=== PATIENT | female | born 1950 | race Caucasian/White ===

== ENCOUNTER 2018-07-23 05:01 | Emergency (ER) | payer OTHER ==
[2018-07-23] MEDS ORDERED: ASPIRIN 81 MG CHEWABLE TABLET ONE (06:45)
[2018-07-23] MEDS ORDERED: NA CHLORIDE 0.9% 500 ML ONE (06:46)
[2018-07-23] MEDS ORDERED: KETOROLAC 30 MG/ML INJ ONE (06:47)
[2018-07-23 07:10] LABS: ALT/SGPT 123 U/L (12-78); AST/SGOT 51 U/L (15-37); Albumin 4.1 g/dL (3.4-5.0); Alkaline Phosphatase 104 U/L (45-117); BUN Blood Urea Nitrogen 19 mg/dL (7-18); Bicarbonate 29 mmol/L (21-32); Bilirubin Direct < 0.1 mg/dL (0-0.2); Bilirubin Total 0.4 mg/dL (0.2-1.0); Glucose Level 134 mg/dL (74-106); Magnesium 2.2 mg/dL (1.8-2.4); NT PRO-BNP 29 pg/mL (<125); Potassium 4.1 mmol/L (3.5-5.1); Protein, Total 7.2 g/dL (6.4-8.2); Protime INR 0.91; Sodium Level 141 mmol/L (136-145); Troponin (Emerg Dept Use Only) < 0.02 ng/mL (0.0-0.045)
[2018-07-23 07:11] LABS: Absolute Monocytes 0.7 K/uL (0.1-1.3); Absolute Neutrophil 5.1 K/uL (1.8-8.0); Basophils % 1.4 % (0-1.3); Hematocrit 43.1 % (36.0-45.0); Lymphocytes % 23.5 % (15.3-44.8); MPV 8.2 fL (7.6-11.3); Monocytes % 8.8 % (3.3-12.3); RBC Red Blood Cell Count 4.59 M/uL (3.86-4.86)
--- NOTE | 2018-07-23 07:34 | EDPHYS ---
Physician Documentation [facility] Name: Sarah Dick Age: 68 yrs Sex: Female : 1950 Arrival Date: 07/23/2018 Time: 05:03 Bed 15 Private MD: Crispin Galeas ED Physician Rashad Lam HPI: 07/23 06:23 This 68 yrs old Female presents to ER via Ambulatory with complaints of R Arm cp Pain. 06:23 The patient or guardian complains of pain, that is acute. cp 06:23 The complaints affect the right upper arm. Context: resulted from unknown cause. Onset: cp The symptoms/episode began/occurred 2 day(s) ago. Treatment prior to arrival includes: no previous treatment. Modifying factors: The symptoms are alleviated by nothing. the symptoms are aggravated by nothing. Associated signs and symptoms: Pertinent negatives: fever, numbness, swelling, weakness, chest pain. Severity of symptoms: in the emergency department the symptoms have improved, mildly. Patient denies injury and reports pain started while lying in bed 2 days ago and is described as "aching". Patient reports pain waxes and wanes. Historical: - Allergies: 05:22 PENICILLINS; jd3 05:22 shellfish proteins; jd3 - Home Meds: 05:22 levothyroxine 137 mcg oral tab 1 tab once daily [Active]; Viibryd 40 mg oral tab 1 tab jd3 once daily [Active]; pantoprazole 40 mg oral TbEC 1 tab 2 times per day [Active]; irbesartan 150 mg oral tab 1 tab once daily [Active]; - PMHx: 05:22 Hypertension; jd3 - PSHx: 05:22 Hysterectomy; Appendectomy; jd3 - Immunization history:: Adult Immunizations up to date. - Social history:: Smoking status: Patient/guardian denies using tobacco. - Ebola Screening: : Patient negative for fever greater than or equal to 101.5 degrees Fahrenheit, and additional compatible Ebola Virus Disease symptoms. ROS: 06:40 Eyes: Negative for injury, pain, redness, and discharge. cp 06:40 Constitutional: Negative for body aches, chills, fever, poor PO intake. 06:40 ENT: Negative for drainage from ear(s), ear pain, sore throat, difficulty swallowing, difficulty handling secretions. 06:40 Cardiovascular: Negative for chest pain, edema, palpitations. 06:40 Respiratory: Negative for cough, dyspnea on exertion, shortness of breath, wheezing. 06:40 Abdomen/GI: Negative for abdominal pain, nausea, vomiting, and diarrhea, constipation, black/tarry stool, rectal bleeding. 06:40 Back: Negative for pain at rest, pain with movement, radiated pain. 06:40 MS/extremity: Positive for pain, of the right upper arm, Negative for injury or acute deformity, decreased range of motion, paresthesias. 06:40 Skin: Negative for cellulitis, rash. 06:40 Neuro: Negative for dizziness, headache, syncope, near syncope, weakness. cp 06:40 All other systems are negative. Exam: 06:35 ECG was reviewed by the Attending Physician. cp 06:45 Constitutional: The patient appears in no acute distress, alert, awake, cp non-diaphoretic, non-toxic, well developed, well nourished. 06:45 Head/Face: Normocephalic, atraumatic. Eyes: Pupils equal round and reactive to light, cp extra-ocular motions intact. Lids and lashes normal. Conjunctiva and sclera are non-icteric and not injected. Cornea within normal limits. Periorbital areas with no swelling, redness, or edema. ENT: Nares patent. No nasal discharge, no septal abnormalities noted. Tympanic membranes are normal and external auditory canals are clear. Oropharynx with no redness, swelling, or masses, exudates, or evidence of obstruction, uvula midline. Mucous membranes moist. Neck: Trachea midline, no thyromegaly or masses palpated, and no cervical lymphadenopathy. Supple, full range of motion without nuchal rigidity, or vertebral point tenderness. No Meningismus. Chest/axilla: Normal chest wall appearance and motion. Nontender with no deformity. No lesions are appreciated. 06:45 Cardiovascular: Rate: normal, Rhythm: regular, Pulses: Pulses are 2+ in right radial artery and left radial artery. Heart sounds: murmur, not appreciated, rub, not appreciated, gallop, not appreciated, Edema: is not appreciated, JVD: is not appreciated. 06:45 Respiratory: the patient does not display signs of respiratory distress, Respirations: normal, no use of accessory muscles, no retractions, no splinting, no tachypnea, labored breathing, is not present, Breath sounds: are clear throughout, no decreased breath sounds, no stridor, no wheezing. 06:45 Abdomen/GI: Exam negative for discomfort, distension, guarding, Inspection: abdomen appears normal. 06:45 Back: pain, is absent, ROM is normal. 06:45 Skin: cellulitis, is not appreciated, no rash present. 06:45 Neuro: Orientation: to person, place \\T\\ time. Mentation: is normal, Cerebellar function: is grossly normal, Motor: moves all fours, strength is normal, Sensation: is normal. Vital Signs: 05:23 BP 151 / 84; Pulse 89; Resp 16 S; Temp 97.6(O); Pulse Ox 97% on R/A; Weight 62.6 kg jd3 (R); Height 5 ft. 3 in. (160.02 cm) (R); Pain 8/10; 06:18 BP 144 / 77; Pulse 83; Resp 19 S; Pulse Ox 97% on R/A; cc3 07:04 BP 143 / 80; Pulse 86; Resp 22; Pulse Ox 96% on R/A; ca1 07:28 BP 142 / 79; Pulse 78; Resp 16; Pulse Ox 98% on R/A; ca1 05:23 Body Mass Index 24.45 (62.60 kg, 160.02 cm) jd3 MDM: 06:15 Patient medically screened. cp 06:30 Differential diagnosis: contusion, strain, sprain, cardiac arrythmia, acute NV. cp 07:31 Data reviewed: vital signs, nurses notes, lab test result(s), EKG, radiologic studies, cp plain films. 07:31 Test interpretation: by ED physician or midlevel provider: ECG, plain radiologic cp studies. 07:31 Counseling: I had a detailed discussion with the patient and/or guardian regarding: the cp historical points, exam findings, and any diagnostic results supporting the discharge/admit diagnosis, the presence of at least one elevated blood pressure reading (>120/80) during this emergency department visit, lab results, radiology results, the need for outpatient follow up, a family practitioner, to return to the emergency department if symptoms worsen or persist or if there are any questions or concerns that arise at home. Response to treatment: the patient's symptoms have mildly improved after treatment, and as a result, I will discharge patient. ED course: VSS. Pain improved with meds. Will discharge to home for continued monitoring. 07/23 06:23 Order name: Basic Metabolic Panel; Complete Time: 07:19 cp 07/23 07:19 Interpretation: Normal except: GLUC 134; BUN 19; GFR 59. cp 07/23 06:23 Order name: CBC with Diff; Complete Time: 07:19 cp 07/23 07:20 Interpretation: Normal except: EOSINOPHIL % 6.0; BASO% 1.4. cp 07/23 06:23 Order name: LFT's; Complete Time: 07:19 cp 07/23 07:20 Interpretation: Normal except: AST 51; ALT 123. cp 07/23 06:23 Order name: Magnesium; Complete Time: 07:19 cp 07/23 06:23 Order name: NT PRO-BNP; Complete Time: 07:19 cp 07/23 06:23 Order name: PT-INR; Complete Time: 07:19 cp 07/23 06:23 Order name: Troponin (emerg Dept Use Only); Complete Time: 07:19 cp 07/23 07:21 Interpretation: Within normal limits: TROPED < 0.02. cp 07/23 06:23 Order name: XRAY Chest (1 view) cp 07/23 06:23 Order name: EKG; Complete Time: 06:24 cp 07/23 06:23 Order name: Cardiac monitoring; Complete Time: 06:24 cp 07/23 06:23 Order name: EKG - Nurse/Tech; Complete Time: 06:35 cp 07/23 06:23 Order name: IV Saline Lock; Complete Time: 06:45 cp 07/23 06:23 Order name: Labs collected and sent; Complete Time: 06:45 cp 07/23 06:23 Order name: O2 Per Protocol; Complete Time: 06:24 cp 07/23 06:23 Order name: O2 Sat Monitoring; Complete Time: 06:24 cp EC:35 Rate is 80 beats/min. Rhythm is regular. [place] interval is normal. QRS interval is normal. cp QT interval is normal. Interpreted by me. Reviewed by me. Administered Medications: 06:44 Drug: Aspirin Chewable Tablet 324 mg Route: PO; jd3 06:48 Follow up: Response: No adverse reaction cc3 06:45 Drug: NS 0.9% 500 ml Route: IV; Rate: bolus; Site: left antecubital; jd3 07:30 Follow up: Urine output 80 ml; Response: No adverse reaction; IV Status: Completed ca1 infusion 06:45 Drug: TORadol 30 mg Route: IVP; Site: left antecubital; jd3 07:30 Follow up: Response: No adverse reaction; Pain is decreased ca1 Disposition: 07/23/18 07:32 Discharged to Home. Impression: Pain in right upper arm. - Condition is Stable. - Discharge Instructions: Musculoskeletal Pain. - Prescriptions for Naprosyn 500 mg Oral Tablet - take 1 tablet by ORAL route 2 times per day take with food; 20 tablet. Tramadol 50 mg Oral Tablet - take 1 tablet by ORAL route every 8 hours as needed; 12 tablet. - Medication Reconciliation Form, Thank You Letter, Antibiotic Education, Prescription Opioid Use form. - Follow up: Crispin Galeas MD; When: 1 - 2 days; Reason: Recheck today's complaints. - Problem is new. - Symptoms have improved. Signatures: Dispatcher [employer] EDMS Manolo Warren PA PA cp Buddy Yusuf RN RN jd3 AcMartina mackay RN RN ca1 Rebekah Jaramillo cc3 Corrections: (The following items were deleted from the chart) 07:41 07:32 07/23/2018 07:32 Discharged to Home. Impression: Pain in right upper arm. ca1 Condition is Stable. Forms are Medication Reconciliation Form, Thank You Letter, Antibiotic Education, Prescription Opioid Use. Follow up: Crispin Galeas; When: 1 - 2 days; Reason: Recheck today's complaints. Problem is new. Symptoms have improved. cp
--- NOTE | 2018-07-23 07:34 | ER ---
Nurse's Notes [facility] Name: Sarah Dick Age: 68 yrs Sex: Female : 1950 Arrival Date: 07/23/2018 Time: 05:03 Bed 15 Private MD: Crispin Galeas Diagnosis: Pain in right upper arm Presentation: 07/23 05:17 Presenting complaint: Patient states: "I am having terrible pain in my right arm that jd3 is sharp and shooting throughout all of my arm.". Transition of care: patient was not received from another setting of care. Onset of symptoms was July 23, 2018. Risk Assessment: Do you want to hurt yourself or someone else? Patient reports no desire to harm self or others. Initial Sepsis Screen: Does the patient meet any 2 criteria? No. Patient's initial sepsis screen is negative. Does the patient have a suspected source of infection? No. Patient's initial sepsis screen is negative. Care prior to arrival: None. 05:17 Method Of Arrival: Ambulatory jd3 05:17 Acuity: DIMITRI 3 jd3 Triage Assessment: 05:12 General: Appears in no apparent distress. uncomfortable, Behavior is calm, cooperative, cc3 appropriate for age. Pain: Complains of pain in right arm. EENT: No signs and/or symptoms were reported regarding the EENT system. Neuro: Level of Consciousness is awake, alert, obeys commands, Oriented to person, place, time, situation, Appropriate for age. Cardiovascular: Denies chest pain. Respiratory: Airway is patent Respiratory effort is even, unlabored, Respiratory pattern is regular, symmetrical. GI: Abdomen is round non-distended. : No signs and/or symptoms were reported regarding the genitourinary system. Derm: No signs and/or symptoms reported regarding the dermatologic system. Musculoskeletal: Circulation, motion, and sensation intact. Range of motion: limited in right arm. Historical: - Allergies: 05:22 PENICILLINS; jd3 05:22 shellfish proteins; jd3 - Home Meds: 05:22 levothyroxine 137 mcg oral tab 1 tab once daily [Active]; Viibryd 40 mg oral tab 1 tab jd3 once daily [Active]; pantoprazole 40 mg oral TbEC 1 tab 2 times per day [Active]; irbesartan 150 mg oral tab 1 tab once daily [Active]; - PMHx: 05:22 Hypertension; jd3 - PSHx: 05:22 Hysterectomy; Appendectomy; jd3 - Immunization history:: Adult Immunizations up to date. - Social history:: Smoking status: Patient/guardian denies using tobacco. - Ebola Screening: : Patient negative for fever greater than or equal to 101.5 degrees Fahrenheit, and additional compatible Ebola Virus Disease symptoms. Screenin:12 Abuse screen: Denies threats or abuse. Denies injuries from another. Nutritional cc3 screening: No deficits noted. Tuberculosis screening: No symptoms or risk factors identified. Fall Risk Ambulatory Aid- None/Bed Rest/Nurse Assist (0 pts). Gait- Normal/Bed Rest/Wheelchair (0 pts) Mental Status- Oriented to own ability (0 pts). Assessment: 05:12 General: see triage assessment. cc3 06:20 Reassessment: Patient appears in no apparent distress at this time. Patient and/or cc3 family updated on plan of care and expected duration. Pain level reassessed. Patient is alert, oriented x 3, equal unlabored respirations, skin warm/dry/pink. PA Page at bedside assessing the patient. 07:04 Reassessment: Patient appears in no apparent distress at this time. Patient and/or ca1 family updated on plan of care and expected duration. Pain level reassessed. Patient is alert, oriented x 3, equal unlabored respirations, skin warm/dry/pink. 07:28 Reassessment: Page PA at bedside, discussing test results and disposition to patient ca1 and significant other. Vital Signs: 05:23 BP 151 / 84; Pulse 89; Resp 16 S; Temp 97.6(O); Pulse Ox 97% on R/A; Weight 62.6 kg jd3 (R); Height 5 ft. 3 in. (160.02 cm) (R); Pain 8/10; 06:18 BP 144 / 77; Pulse 83; Resp 19 S; Pulse Ox 97% on R/A; cc3 07:04 BP 143 / 80; Pulse 86; Resp 22; Pulse Ox 96% on R/A; ca1 07:28 BP 142 / 79; Pulse 78; Resp 16; Pulse Ox 98% on R/A; ca1 05:23 Body Mass Index 24.45 (62.60 kg, 160.02 cm) [facility] ED Course: 05:03 Patient arrived in ED. ds1 05:04 Crispin Galeas MD is Private Physician. ds1 05:12 Rebekah Jaramillo is Primary Nurse. cc3 05:12 Patient has correct armband on for positive identification. Bed in low position. Call cc3 light in reach. Side rails up X 1. Pulse ox on. NIBP on. 05:19 Triage completed. jd3 05:23 Arm band placed on. jd3 06:14 Manolo Warren PA is PHCP. cp 06:14 Rashad Lam MD is Attending Physician. cp 06:37 X-ray completed. Portable x-ray completed in exam room. Patient tolerated procedure jb2 well. 06:38 XRAY Chest (1 view) In Process Unspecified. EDMS 06:40 Inserted saline lock: 22 gauge in left antecubital area, using aseptic technique. Blood cc3 collected. 07:00 Report given to MIGUELINA Mejia. cc3 07:02 Martina Briseno RN is Primary Nurse. ca1 07:32 Crispin Galeas MD is Referral Physician. cp 07:39 No provider procedures requiring assistance completed. IV discontinued, intact, ca1 bleeding controlled, No redness/swelling at site. Pressure dressing applied. Administered Medications: 06:44 Drug: Aspirin Chewable Tablet 324 mg Route: PO; jd3 06:48 Follow up: Response: No adverse reaction cc3 06:45 Drug: NS 0.9% 500 ml Route: IV; Rate: bolus; Site: left antecubital; jd3 07:30 Follow up: Urine output 80 ml; Response: No adverse reaction; IV Status: Completed ca1 infusion 06:45 Drug: TORadol 30 mg Route: IVP; Site: left antecubital; jd3 07:30 Follow up: Response: No adverse reaction; Pain is decreased ca1 Output: 07:30 Urine: 80ml; Total: 80ml. ca1 Outcome: 07:32 Discharge ordered by MD. cp 07:39 Discharged to home ambulatory, with significant other. ca1 07:39 Condition: stable 07:39 Discharge instructions given to patient, Instructed on discharge instructions, follow up and referral plans. medication usage, Demonstrated understanding of instructions, follow-up care, medications, Prescriptions given X 2. 07:41 Patient left the ED. ca1 Signatures: Dispatcher [employer] EDMA [facility], Hasmukh jbFariba Dial, Asiya ds1 Manolo Warren PA PA cp Davies, Jonathon RN RN jd3 Rebekah Jaramillo cc3 Martina Briseno, RN RN ca1
--- NOTE | 2018-07-23 08:25 | RAD REPORT ---
EXAM DESCRIPTION: RAD - Chest Single View - 07/23/2018 6:37 am CLINICAL HISTORY: right arm pain Chest pain. COMPARISON: Chest Single View dated 12/02/2015 FINDINGS: Portable technique limits examination quality. The lungs are grossly clear. The heart is normal in size. No displaced fractures. IMPRESSION: No acute intrathoracic process suspected.
--- NOTE | 2018-07-23 17:09 | EKG ---
Test Date: 2018-07-23 Test Time: 06:28:56 [employer] Operator: MATTY MEASUREMENT RESULTS: Intervals: Rate: 80 IL: 152 QRSD: 68 QT: 386 QTc: 445 [place]: P: 45 IL: 152 QRS: 15 T: 26 INTERPRETIVE STATEMENTS: Normal sinus rhythm Low voltage QRS Cannot rule out Anterior infarct, age undetermined Abnormal ECG Compared to ECG 12/02/2015 16:23:59 Low QRS voltage now present Myocardial infarct finding still present Electronically Signed On 07-23-18 17:06:59 [employer] by Umang Vazquez
== END 2018-07-23 07:41 | disposition home or self-care (01) ==
LOC: ER 05:01
DX: M79.601 Pain in right arm (principal); Z88.0 Allergy status to penicillin; Z91.013 Allergy to seafood; I10 Essential (primary) hypertension
CPT/HCPCS: 36415; 71045; 80048; 80076; 83735; 83880; 84484; 85025; 85610; 93005; 96361; 96374; 99284